=== PATIENT | male | born 1995 | race Caucasian/White ===

== ENCOUNTER 2021-02-10 12:58 | Emergency (ER) | payer BC, MEDICAID ==
--- NOTE | 2021-02-10 13:02 | EDM.PDOC ---
ED HPI GENERAL MEDICAL PROBLEM - General Stated Complaint: BITE BY LORENZO GATES SPIDER Time Seen by Provider: 02/10/21 12:58 Source of Information: Reports: Patient History Limitations: Reports: No Limitations - History of Present Illness INITIAL COMMENTS - FREE TEXT/NARRATIVE: 25-year-old male presents for skin infection on right upper extremity. Patient states that he woke up and noticed what he assumed was a spider bite. Over the last couple of days the area has gotten red, enlarged, painful. Denies fevers, nausea, vomiting. R forearm Pain Score (Numeric/FACES): 6 - Related Data Allergies Allergy/AdvReac Type Severity Reaction Status Date / Time No Known Allergies Allergy Verified 02/10/21 13:10 Home Meds: Home Meds Clindamycin HCl 450 mg PO TID 10 Days #90 capsule 02/10/21 [Rx] ED ROS GENERAL - Review of Systems Review Of Systems: Comprehensive ROS is negative, except as noted in HPI. ED EXAM, GENERAL - Physical Exam Exam: See Below Exam Limited By: No Limitations General Appearance: Alert, WD/WN, No Apparent Distress Ears: Hearing Grossly Normal Throat/Mouth: Normal Voice, No Airway Compromise Head: Atraumatic, Normocephalic Neck: Normal Inspection Respiratory/Chest: No Respiratory Distress, Lungs Clear, Normal Breath Sounds, No Accessory Muscle Use Cardiovascular: Normal Peripheral Pulses, Regular Rate, Rhythm Extremities: Normal Inspection Neurological: Alert, Normal Cognition, Normal Gait Psychiatric: Normal Affect, Normal Mood Skin Exam: Warm, Dry, Intact, Normal Color, Other (Abscess to right upper forearm approximately 2 x 2 cm with mild surrounding erythema) ED I&D PROCEDURES - I&D Site: R forearm Skin prep: Chlorhexidine (Hibiciens) Local anesthesia - Lidocaine (Xylocaine): 1% with EPI Local Anesthetic Volume: 5cc Area Incised With: 11 Blade Drainage: Purulent Probed to Break Up Loculations: Yes Packed With: None Complications: No Course - Vital Signs Last Recorded V/S: Last Vital Signs Temp 97.6 F 02/10/21 13:11 Pulse 62 02/10/21 13:11 Resp 15 02/10/21 13:11 BP 126/69 02/10/21 13:11 Pulse Ox 97 02/10/21 13:11 - Orders/Labs/Meds Orders: Active Orders 24 hr Category Date Time Status Vaccine to be Administered/Admin Charge [RC] ASDIRECTED Care 02/10/21 13:23 Active Meds: Medications Discontinued Medications Generic Name Dose Route Start Last Admin Trade Name Maria G PRN Reason Stop Dose Admin Diphtheria/Tetanus/Acell Pertussis 0.5 ml 02/10/21 13:23 02/10/21 13:33 Diphtheria,Pertussis(Acell),Tetanus Vaccine 0.5 Ml Syringe IM 02/10/21 13:24 0.5 ml .ONCE ONE Administration Lidocaine/Epinephrine 10 ml 02/10/21 13:20 02/10/21 13:29 Lidocaine 1% With Epinephrine 1:100,000 20 Ml Mdv INJECT 02/10/21 13:21 10 ml ONETIME ONE Administration - Re-Assessments/Exams Free Text/Narrative Re-Assessment/Exam: 02/10/21 13:38 We will discharge with clindamycin. Recommend PMD follow-up. Return precautions discussed. Possibility of treatment failure and need for repeat incision and drainage discussed. Departure - Departure Time of Disposition: 13:38 Disposition: Home, Self-Care 01 Condition: Good Clinical Impression: Abscess - Discharge Information Prescriptions: Clindamycin HCl 450 mg PO TID 10 Days #90 capsule Instructions: Skin Abscess Additional Instructions: Please take antibiotics as prescribed. There is a possibility that this will recur and need to be drained again. The following information is given to patients seen in the emergency department who are being discharged to home. This information is to outline your options for follow-up care. We provide all patients seen in our emergency department with a follow-up referral. The need for follow-up, as well as the timing and circumstances, are variable depending upon the specifics of your emergency department visit. If you don't have a primary care physician on staff, we will provide you with a referral. We always advise you to contact your personal physician following an emergency department visit to inform them of the circumstance of the visit and for follow-up with them and/or the need for any referrals to a consulting specialist. The emergency department will also refer you to a specialist when appropriate. This referral assures that you have the opportunity for follow-up care with a specialist. All of these measure are taken in an effort to provide you with opt imal care, which includes your follow-up. Under all circumstances we always encourage you to contact your private physician who remains a resource for coordinating your care. When calling for follow-up care, please make the office aware that this follow-up is from your recent emergency room visit. If for any reason you are refused follow-up, please contact the [facility] Emergency Department at and asked to speak to the emergency department charge nurse. Please follow up with your primary care physician. If you do not have a primary care physician, see below: [facility] [id number], [place] [address] [facility] [address] [place] [address] [facility] [address], [place] [address] Sepsis Event Note (ED) - Focused Exam Vital Signs: Vital Signs Temp Pulse Resp BP Pulse Ox 02/10/21 13:11 97.6 F 62 15 126/69 97 - My Orders Last 24 Hours: My Active Orders 02/10/21 13:23 Vaccine to be Administered/Admin Charge [RC] ASDIRECTED - Assessment/Plan Last 24 Hours: My Active Orders 02/10/21 13:23 Vaccine to be Administered/Admin Charge [RC] ASDIRECTED
[2021-02-10] MEDS ORDERED: Lidocaine 1% with EPINEPHrine 1:100,000 20 ML MDV INJECT ONE (13:20)
[2021-02-10] MEDS ORDERED: Diphtheria,Pertussis(Acell),Tetanus Vaccine 0.5 ML Syringe IM ONE (13:23)
== END 2021-02-10 13:57 | disposition home or self-care (01) ==
LOC: MW.ED 12:58
DX: L02.413 Cutaneous abscess of right upper limb (principal); Z23 Encounter for immunization
CPT/HCPCS: 10060; 90471; 90715; 99283-25